=== PATIENT | female | born 1945 | race Caucasian/White ===

== ENCOUNTER 2016-11-02 10:42 | Emergency (ER) | payer MEDICARE ==
[~2016-11-02] VITALS: Ht 175.3 cm; Wt 84.1 kg
[~2016-11-02 10:42] MED LIST: ACET325T51 PO; IBUP200C PO
[2016-11-02 10:52] VITALS: BP 156/94; PULSE 64; RESP 17; O2SAT 99
[2016-11-02] MEDS ORDERED: HYDROmorphone 0.5 mg/0.5 mL iSecure Syringe IVPUSH PRN (11:10)
[2016-11-02] MEDS ORDERED: Ondansetron 2 mg/mL 2 mL Inj IVPUSH PRN (11:10)
[2016-11-02] MEDS ORDERED: HYDROmorphone 1 mg/mL Inj IVPUSH ONE (11:40)
[2016-11-02] MEDS ORDERED: HYDROmorphone 1 mg/mL Inj IVPUSH PRN (11:40)
[2016-11-02 12:05] LABS: BASOPHILS % (AUTO) 0.4 % (0-3); EOSINOPHILS % (AUTO) 0.4 % (0-5); MONOCYTES % (AUTO) 6.6 % (4-12); Mean Corpuscular Hemoglobin 31.2 pg (27.0-35.0); Mean Corpuscular Volume 95.6 fL (81-100); NEUTROPHILS % (AUTO) 77.5 % (40-74); Platelet Count 185 bil/L (150-400)
--- NOTE | 2016-11-02 12:07 | ED.REPORT ---
HPI-Hip/Pelvis Prob/Inj Date of Service Nov 02, 2016 ED Provider: Eve Wang MD History of Present Illness: Patient is a 71-year-old female with past medical history of left hip arthroplasty, status post left hip arthroplasty revision. 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 Patient says this has happened previously where she had an anterior dislocation of her left hip. Patient described the pain as severe with radiation down her left leg and stated that her foot is feeling tingly. Patient said that pain is aggravated by movement, well patient is lying down pain is well-controlled. Patient transported to the ED via EMS and Route given 200 g of fentanyl. Nursing Notes Stated Complaint: HIP DISLOCATION Chief Complaint: Extremity Trauma Allergies: Coded Allergies: No Known Allergies (Verified , 03/04/14) Scheduled PRN Acetaminophen (Acetaminophen) 325 Mg Tablet 325-650 MG PO PRN PRN PRN For Pain Ibuprofen (Ibuprofen) 200 Mg Capsule 200-400 MG PO QID PRN PRN For Pain Ondansetron (Zofran) 4 Mg Tablet 4 MG PO Q4H PRN PRN For Nausea oxyCODONE-Acetaminophen 5-325 mg (oxyCODONE-Acetaminophen 5-325 mg) 1 Each Tablet 1 TAB PO Q4H PRN PRN For Pain General Time Seen by Provider: 11:45 Chief Complaint Hip pain left Hx Obtained From: Patient Arrived By: Ambulance Onset Occurred: Just prior to arrival Context of Onset: Home injury Symptom Duration: Since onset Progression Since Onset: Constant Caused by: Accidental Immunizations: All up to date Past Medical History Past Medical History Notes: Hand pain Leg swelling Axillary lymphadenitis Axillary mass Rectocele cystocele Nummular dermatitis Past Surgical History Left hip arthroplasty Left hip arthroplasty revision Smoking History Former Smoker Review of Systems Basic Review of Systems Eyes: Vision NL, No discharge ENT: Hearing NL, No pain, No nasal congestion, No pharyngeal pain Respiratory: No shortness of breath, No cough, No wheeze Cardiovascular: No chest pain, No dyspnea on exertion, No orthopnea, No parox noct dyspnea, No palpitations GI: No abdominal pain, No anorexia, No nausea, No vomiting : No dysuria, No frequency Constitutional: Denies: Chills, Fatigue, Fever Complete sys rev & neg: except as marked. Physical Exam Initial Vital Signs Vital Signs (First) Date Time Temp Pulse Resp B/P Pulse Ox O2 Delivery O2 Flow Rate FiO2 11/02/16 10:52 37.7 64 17 156/94 99 Room Air Initial VS: Reviewed (hypertensive likely due to) General/Constitutional: Well-developed, Well-nourished Head / Eyes: Atraumatic, Normocephalic, PERRL ENT: Mucous membranes moist, Conjunctiva normal, No scleral icterus Neck: Supple, Non-tender, Full range of motion Respiratory: Breath sounds normal, Clear to auscultation, No respiratory distress Cardiovascular: Regular rate & rhythm, Heart sounds normal, Intact distal pulses Abdomen / GI: Soft, Non-tender, No guarding, No rebound, No distention Lower Extremity / Pelvis / MS: Neurologic intact, Vascular intact Lower Ext Brief Normals: Hip R exam normal Pelvis: Positive: Tender L lateral, Negative: Pelvis unstable Left Hip: Positive: ROM reduced... (left hip locked and internal rotation length reduced compared to right), Swelling present... (Moderate), Tenderness present... (Moderate) Interpretation & Diagnostics Lab Results Interpretation Result Diagram: 11/02/16 1155 11/02/16 1155 Test 11/02/16 11:55 White Blood Count 7.0th/mm3 (3.8-10.1) Red Blood Count 4.13mil/mm3 (3.90-5.20) Hemoglobin 12.9g/dL (12.0-15.6) Hematocrit 39.5% (35.0-46.0) Mean Corpuscular Volume 95.6fL (81-100) Mean Corpuscular Hemoglobin 31.2pg (27.0-35.0) Mean Corpuscular Hemoglobin Concent 32.7% (32.0-37.0) Red Cell Distribution Width 12.9% (12.3-15.4) Platelet Count 185bil/L (150-400) Neutrophils (%) (Auto) 77.5% (40-74) Lymphocytes (%) (Auto) 15.0% (14-46) Monocytes (%) (Auto) 6.6% (4-12) Eosinophils (%) (Auto) 0.4% (0-5) Basophils (%) (Auto) 0.4% (0-3) Prothrombin Time 10.2sec (8.1-12.5) Prothromb Time International Ratio 0.95ratio Activated Partial Thromboplast Time 27.0sec (22.8-33.0) Sodium Level 141mEq/L (134-144) Potassium Level 3.8mEq/L (3.5-5.2) Chloride Level 107mEq/L (97-108) Carbon Dioxide Level 21mmol/L (18-29) Blood Urea Nitrogen 17mg/dL (8-27) Creatinine 0.79mg/dL (0.57-1.00) Estimat Glomerular Filtration Rate 103mL/min (>59) Glucose Level 96mg/dL (60-99) Calcium Level 8.2mg/dL (8.5-10.1) Total Bilirubin 0.4mg/dL (0.0-1.2) Aspartate Amino Transf (AST/SGOT) 65U/L (0-50) Alanine Aminotransferase (ALT/SGPT) 42U/L (0-32) Alkaline Phosphatase 55U/L (25-165) Total Protein 6.2g/dL (6.4-8.4) Albumin 3.9g/dL (3.4-5.0) Hold Tate Top Tube Received (Received) X-Ray Interpretation Xray Interpretation: IMPRESSION: Posterior left hip arthroplasty dislocation. Dictated by: Vilma Marley M.D. on 11/02/2016 at 12:43 Approved by: Vilma Marley M.D. on 11/02/2016 at 12:43 Procedures Reduction Post Dislocation Hip After informed consent was provided and patient. Written consent. Peripheral pulses intact, left lower extremity neurologically intact Remainder of family except patient's was allowed to stay in room. Nursing and respiratory therapy were present. Conscious sedation was initiated with 40 g of propofol IV Traction was applied to left leg with flexion and external rotation Sedation was not fully initiated and 20 g of propofol IV given Reduction attempted, unsuccessful Dr. Bhagat was called to aid with reduction of left hip 40 mg IV propofol given better consciousness sedation achieved Hip was successfully reduced after additional trial. Left lower extremity neurovascularly intact postprocedure X-ray of pelvis status post hip reduction ordered Time: 13:01 Procedure Performed by: ED physician (immediately available and actively involved with procedure), ED resident Consent / Timeout / Setup: Informed consent provided, Consent from patient Procedural Sedation/Analgesia: Sedation: Propofol Which Hip and Technique: Left hip Neurovascular: Intact pre-procedure, Intact post-procedure Post-Procedure / Complications: Reduced per examination, Procedure successful, X-ray disloc reduced, Hip immobilized (via long leg knee imobilizer), Condition improved, Tolerated procedure well, Patient stable Re-Eval/Medical Decision Med Decision/Clinical Course 71-year-old female with posterior left hip dislocation confirmed by physical exam and x-ray Laboratory results showed no signs of acute bleed Closed reduction of left hip status post dislocation was initiated in the ED under conscious sedation Informed consent given to patient prior to procedure Written consent obtained the procedure X-ray postprocedure showed reduction of dislocated Source of Hx: EMS Re-Evaluation/Progress #1: Time of Eval: 12:45 Patient Status: Condition unchanged Re-Evaluation/Progress Note: Informed consent given Consent for conscious sedation and closed left hip reduction of dislocation Re-Evaluation/Progress #2: Time of Eval: 13:30 Patient Status: Condition improved, Moderate relief Re-Evaluation/Progress Note: Discussed with patient findings on x-ray of successful reduction of left hip fracture All QUESTIONS ANSWERED Consultation : Consulted With: Orthopedic Requested Call at: 12:00 Call Returned at: 12:05 Note: Discussed patient's case with Dr. Rainey, recommended general anesthesia consult and a trial of closed reduction of left hip and emergency Department first. Counseled Regarding: Diagnosis, Lab results, When/why to return to ED Discharge & Departure Impression: Primary Impression: Dislocation of hip, left, closed Encounter type: initial encounter Qualified Code: S73.005A - Unspecified dislocation of left hip, initial encounter Disposition: Home Discharge Condition All VS Reviewed: Yes Condition: Stable Patient Instructions: Splint Care (ED) Additional Instructions: During you visit to [facility] Emergency Department we obtained x-ray of her left hip and pelvis together with physical examination and mechanism of injury there was evidence of a left posterior hip dislocation. Your hip dislocation was reduced under conscious sedation, successful reduction of her left hip was confirmed by x-ray Your vital signs were stable and safe for discharge. We will send you home with - Pain medications - Nausea medications -Knee brace to prevent movement of your hip When taking Percocet pain medications DO NOT drive, DO NOT drink alcohol, DO NOT take extra acetaminophen (Tylenol). Do not hesitate to call emergency services or your primary care physician if you find that your hip has dislocated again. You have been given a long leg knee immobilizer to prevent you from bending your knee. If you can't bend your knee, you can dislocate your hip simply stand from a chair like you did today. Follow up with your primary care physician in 1-2 weeks time following your emergency department visit for medication checks and general well-being. Follow-up with Dr Madrigal next to discuss further treatment options and prevention strategies for additional hip dislocations. Thanks for letting us take care of you today. I'm glad you get to go home! Referrals: Jarad Araujo DO (PCP) copies to: Jarad Araujo DO; Marie Madrigal MD, AARON J DO Nov 02, 2016 12:07 STEPHANIE DUNCAN Nov 02, 2016 14:01 Eve Wang MD Nov 02, 2016 14:40
[2016-11-02 12:21] LABS: INR 0.95 ratio
[2016-11-02] MEDS ORDERED: Propofol 10 mg/mL 20 mL Inj IVPUSH ONE (12:25)
--- NOTE | 2016-11-02 12:45 | DRSVH ---
PROCEDURE: X-RAY PELVIS W/LAT HIP (LT) ([id number]) INDICATIONS: LEFT HIP DISLOCATION TECHNIQUE: AP pelvis with lateral view(s) of the left hip(s). COMPARISON: None. FINDINGS: Bones: There is a posterior left hip arthroplasty dislocation. No fractures visualized. Soft tissues: The visualized bowel gas pattern is normal. No suspicious soft tissue calcifications. IMPRESSION: Posterior left hip arthroplasty dislocation. Dictated by: Vilma Marley M.D. on 11/02/2016 at 12:43 Approved by: Vilma Marley M.D. on 11/02/2016 at 12:43
--- NOTE | 2016-11-02 13:17 | DRSVH ---
PROCEDURE: X-RAY LEFT HIP, ONE VIEW ([id number]) INDICATIONS: post reduction TECHNIQUE: Single views of the hip were acquired. COMPARISON: None. FINDINGS: Bones: Patient is status post reduction of a left hip arthroplasty dislocation. Soft tissues: No suspicious soft tissue calcifications or masses. IMPRESSION: Status post successful reduction of a left hip dislocation. Dictated by: Vilma Marley M.D. on 11/02/2016 at 13:14 Approved by: Vilma Marley M.D. on 11/02/2016 at 13:15
[2016-11-02] MEDS ORDERED: ONDA4TAB6 PO (14:02)
[2016-11-02] MEDS ORDERED: OXYC1TAB24 PO (14:02)
[2016-11-02 14:55] VITALS: BP 128/73; PULSE 60; RESP 13; O2SAT 96
== END 2016-11-02 14:57 | disposition home or self-care (01) ==
LOC: SED 10:42 → EDBD 10:42 → SED 14:57
DX: T84.021A Dislocation of internal left hip prosthesis, initial encounter (principal); X50.1XXA Overexertion from prolonged static or awkward postures, initial encounter; Y92.009 Unspecified place in unspecified non-institutional (private) residence as the place of occurrence of the external cause; Y93.89 Activity, other specified; Y99.8 Other external cause status; Z96.642 Presence of left artificial hip joint; Z87.891 Personal history of nicotine dependence
CPT/HCPCS: 27265; 36415; 73501; 80053; 85025; 85610; 85730; 86850; 94799; 96374; 96375; 99152; 99153; 99285; J1170; J2405